=== PATIENT | male | born 1995 ===

== ENCOUNTER 2016-12-28 09:54 | Outpatient (RCR) | payer BC | END 2017-01-14 | disposition home or self-care (01) | LOC: WCC 09:54 | DX: L98.491 Non-pressure chronic ulcer of skin of other sites limited to breakdown of skin (principal); L26 Exfoliative dermatitis | CPT/HCPCS: 99204 ==

== ENCOUNTER 2017-08-30 13:47 | Outpatient (RCR) | payer BC ==
--- NOTE | 2017-09-01 21:00 | Consultation ---
DATE OF CONSULTATION: 09/01/2017 INFECTIOUS DISEASE CONSULTATION CONSULTING PHYSICIAN: Chilango Rosales M.D. REQUESTING PHYSICIAN: Catarino Patino M.D. REASON FOR CONSULTATION: Recurrent inflammation of upper and lower lips. Recommendation for antibiotics treatment HISTORY OF PRESENT ILLNESS: The patient is a 22-year-old male with no significant past medical history except lower lip bottom scar status post freezing with liquid nitrogen in October 2015 and previously in August of 2015, who was referred to the wound care clinic for hyperbaric oxygen treatment of his lips due to multiple infection and chronic inflammation and swelling of both lips. His problem goes back in August 2015 when he underwent bottom lip scar freezing with liquid nitrogen two months apart in August and again later in October. These scars on his lower lip goes back to dog bite when he was 4 years old and previously, he had severely chapped lips and extensive sun exposure, which led to more lips problem. The patient lips started getting swollen after he underwent liquid nitrogen freezing and they never healed up almost for the last two years. During his healing process in 2016, he would wipe off loose healing skin every day before going out in public. Also skin would not adhere to the tissue especially when he wet his lips from saliva or water after he does his surfing. The patient when he had his lower lips frozen in 2015, was taking antibiotics for his pimples for almost 9 months with Doryx twice daily and Solodyn once daily. Bottom lip began continuous bleeding cycles after the freeze. They became raw, sensitive, and more swollen as time goes on. New skin comes back thick, dry, and flak,y then peeling cycle begins again. Inflammation soon spread to his upper lip even though his upper lip was never frozen with liquid nitrogen. The patient had secondary infection complicating his lips swelling and skin problem on the lips. He had heavy Staph aureus growth and Catherine parapsilosis were found on several cultures and he was treated for both. The patient have also tried many products to treat his lips including prescription and nonprescription medication, oral steroid pack, topical steroid, vitamins, probiotics supplement, and [place] herbs with change in his diet most of boost his immune system and fight Catherine overgrowth with no significant improvement. He had some blood workup done, which indicate low white cell count. His latest culture, which he had, many of them showed no evidence of Staph aureus growth or yeast growth and he was treated for those multiple times in the past. So, the patient finally was referred to the wound care clinic for further evaluation and management to use hyperbaric oxygen and Infectious Disease consultation was requested by the wound care clinic team for further evaluation and recommendation of his lips condition. The patient today denied any oozing or drainage from his lips. He has some dryness with flaky skin, but no blisters, no drainage, and no significant pain. Both lips are swollen. Denied any fever, headache, sore throat, runny nose, or earache. The patient denied any genital lesion or ulceration at this point. No lymphadenopathy. No weight loss or night sweats. PAST MEDICAL HISTORY: Significant for scars on his lower lip due to dog bite at age of 4. PAST SURGICAL HISTORY: He had liquid nitrogen freeze of his lower lip scars in 2016. ALLERGIES: Not documented in the record, but he denied any medication allergies or food allergy. FAMILY HISTORY: Negative for any skin disease, rheumatologic disease, or autoimmune disease. REVIEW OF SYSTEMS: A 14-point of system reviewed were all negative apart from the one I mentioned above in my History and Physical. PHYSICAL EXAMINATION: VITAL SIGNS: Reviewed and stable. GENERAL: A young male up in bed with swollen lips. Awake, alert, and oriented x3, not in distress. HEENT: Normocephalic and atraumatic. Pupils reactive to light equally. Moist oral mucosa. Swollen lips with redness in both upper and lower part of his lips with flaky skin and not tender to palpation. No drainage or open wound. No ulceration. No submandibular lymphadenopathy. No thrush or ulcers on his tongue or mouth. No tonsillar exudate or enlargement. NECK: Supple. No lymphadenopathy. CARDIOVASCULAR: Regular rate and rhythm. No murmur. No gallop. LUNGS: Clear bilaterally. No wheezing. No rhonchi. ABDOMEN: Soft, nontender, and nondistended. Normal bowel sounds. No hepatosplenomegaly. No ascites. EXTREMITIES: No edema. No cyanosis. SKIN: No rash. No hives. GENITOURINARY: No ulceration. No lymphadenopathy. LABORATORY DATA: Not done recently, but old labs were reviewed. It showed white count of 3.2. The rest of his labs were normal. He had serology screening for herpes, Martín-Maddox, and HIV. They were all negative or showed previous exposure. At some point, he had mycoplasma antibody with IgM positive in the past. IMAGES: None available so far. ASSESSMENT AND RECOMMENDATIONS: Upper and lower lips inflammation with swelling and chronic skin changes. Differential includes atopic cheilitis versus eczematous cheilitis versus lichen planus versus psoriasis versus pemphigus etc. At this point, I do not see any infection on the surface of his lips to treat. His recent culture has been negative for both bacteria and fungal. I recommend biopsy of his lower lip to identify the exact skin pathology and treat as needed in the future. The patient and family showed interest in hyperbaric oxygen treatment at this point before they proceed to biopsy in the future. I will keep him off antibiotics for now since I do not see a reason to treat any infection at this point. I had detailed discussion with his parents at the bedside regarding his lips condition, which could be secondary to dermatome and the need for biopsy is crucial to find out the exact pathology. Otherwise, treating him with more antibiotics will select far more resistant organism and will not treat the underlying skin condition. The patient and family verbalized understanding. Recommended to keep lips moist, avoid lip sucking or licking by the tongue, or picking on the skin flakes, which he has on both lips, and to cleanse his mouth daily at least with Listerine to avoid bacterial overgrowth and subsequent lips infection. Thank you for the consultation. Please feel free to call with any question. Chilango Rosales M.D. DR: PATRIA JOB#: [id number] CC: [id number]
== END 2017-09-13 | disposition home or self-care (01) ==
LOC: WCC 13:47
DX: L98.491 Non-pressure chronic ulcer of skin of other sites limited to breakdown of skin (principal); L26 Exfoliative dermatitis
CPT/HCPCS: G0463 ×2

== ENCOUNTER 2017-10-04 14:01 | Outpatient (RCR) | payer SELFPAY | END 2017-10-14 | disposition home or self-care (01) | LOC: WCC 14:01 | DX: L98.491 Non-pressure chronic ulcer of skin of other sites limited to breakdown of skin (principal); L26 Exfoliative dermatitis | CPT/HCPCS: G0277 ×6 ==

== ENCOUNTER 2017-10-18 14:41 | Outpatient (RCR) | payer SELFPAY | END 2017-11-13 | disposition home or self-care (01) | LOC: WCC 14:41 | DX: L98.491 Non-pressure chronic ulcer of skin of other sites limited to breakdown of skin (principal); L26 Exfoliative dermatitis | CPT/HCPCS: G0277 ×6 ==